=== PATIENT | male | born 1945 | race Caucasian/White ===

== ENCOUNTER → 2021-01-28 15:51 | Outpatient (CLI) | payer MEDICARE, OTHER, SELFPAY ==
--- NOTE | 2021-01-28 15:56 | DI.MRI.S_ITS ---
PROCEDURE: MR PELIS WO/W CON INDICATIONS: prostate cancer TECHNIQUE: Coronal HASTE, axial T1 FSE with fat saturation, 3-plane nonbreath-hold T2 FSE. After the administration of contrast, dynamic axial, delayed axial and coronal VIBE or 2-D FLASH with fat saturation through the pelvis. Optional diffusion weighted imaging and ADC may be performed. COMPARISON: Outside Film, MR, MR PELVIS PROSTATE SCREENING PROTOCOL, 12/29/2019, 8:40. FINDINGS: Image quality: Diffusion weighted and dynamic contrast enhanced images are diagnostic. Prostate: Gland size is 6.5 x 5.6 x 4.7 cm; ellipsoid gland volume is 89 mL. Transitional zone: There is heterogeneous enlargement of the transitional zone redemonstrated compatible with BPH. In addition, there is asymmetric ill-defined T2 hypointensity redemonstrated within the right transitional zone predominantly at the level of the mid prostate. There is corresponding asymmetric mild restricted diffusion with mild hypointensity on the ADC map. Following contrast administration, there is associated mild ill-defined asymmetric dynamic contrast enhancement. No extracapsular extraprostatic extension. Findings are similar to the prior study and again are compatible with PI-RADS 3. Peripheral zone: No abnormal restricted diffusion. Genitourinary system: There is mild bladder wall thickening and trabeculation consistent with sequelae of chronic bladder outlet obstruction. Distal ureters are non distended. Bowel and peritoneum: No pathologic free pelvic fluid. Inferior colon and small bowel loops are normal in caliber. Nodes and vessels: No pelvic or inguinal adenopathy by size criteria. Iliac vessels are normal in caliber. Soft tissues: No inguinal hernias. Bones: Marrow demonstrates normal overall signal, without suspicious lesions to suggest metastases. There is moderate facet arthropathy at the lumbosacral junction. IMPRESSION: 1. Asymmetric ill-defined area of restricted diffusion, T2 hypointensity, and enhancement in the right transitional zone appears similar to the prior study. Findings are again indeterminate, PI-RADS 3. No evidence of extraprostatic invasion. 2. No lymphadenopathy or other evidence of metastatic disease in the pelvis. Dictated by: Kevin Lorenz M.D. on 01/31/2021 at 9:34 Approved by: Kevin Lorenz M.D. on 01/31/2021 at 10:35
[2021-01-28 17:43] LABS: Prostate Specific Antigen 14.1 ng/mL (0.10-4.00)
== END ==
PROVIDERS: PCP Family Medicine; Referring Provider Specialist; Visit Provider Specialist
DX: C61 Malignant neoplasm of prostate (principal); R93.7 Abnormal findings on diagnostic imaging of other parts of musculoskeletal system; N13.8 Other obstructive and reflux uropathy; N40.1 Benign prostatic hyperplasia with lower urinary tract symptoms
CPT/HCPCS: 36415; 72197; 84153; A9579